=== PATIENT | male | born 1965 | race Caucasian/White ===

== ENCOUNTER 2017-03-26 06:16 | Emergency (ER) | payer OTHER, SELFPAY ==
[2017-03-26] MEDS ORDERED: Nitroglycerin 0.4 MG TAB (25 Tab Bottle) ONE (06:41)
[2017-03-26 06:44] LABS: #Basophils 0.2 thou/uL (0.0-0.2); #Eosinphils 1.4 thou/uL (0.0-0.7); #Lymphocytes 2.4 thou/uL (1.20-3.40); #Monocytes 1.2 thou/uL (0.11-0.59); #Neutrophils 5.5 thou/uL (1.40-6.50); %Basophils 1.8 % (0.0-1.0); %Eosinophils 12.8 % (0.0-10.0); %Lymphocytes 22.5 % (21.0-51.0); %Monocytes 11.5 % (0.0-10.0); %Neutrophils 51.4 % (42.0-75.0); Mean Corpuscular HGB CONC 33.3 g/dL (32.0-36.0); Mean Corpuscular Hemoglobin 29.3 pg (27.0-31.0); Mean Corpuscular Volume 88.2 fl (80.0-94.0); Mean Platelet Volume 7.7 fL (7.4-10.4); Platelet Count 243 thou/uL (130-400); RBC Distribution Width 12.2 % (11.5-14.5); Red Blood Cell (RBC) Count 5.12 mill/uL (4.70-6.10); White Blood Cell (WBC) Count 10.8 thou/uL (4.8-10.8)
[2017-03-26] MEDS ORDERED: Ondansetron HCl/PF 4 MG/2 ML Vial ONE (06:51)
[2017-03-26 06:53] LABS: PTT 30.5 SEC (22.9-36.1)
[2017-03-26 06:54] LABS: Prothrombin Time 13.1 SEC (12.0-14.7)
[2017-03-26 06:55] LABS: D-Dimer Test 0.37 *mcg/mL (0.27-0.43)
[2017-03-26 07:00] LABS: ALT (SGPT) 11 U/L (8-55); AST (SGOT) 12 U/L (5-34); Albumin 4.1 g/dL (3.5-5.0); Alkaline Phosphatase 41 U/L (40-150); Anion Gap 15 mmol/L (10-20); BUN (Urea Nitrogen) 12 mg/dL (8.9-20.6); Bilirubin, Total 0.5 mg/dL (0.2-1.2); CK (CPK) 111 U/L (30-200); CKMB 1.6 ng/mL (0-6.6); Calc. Creatinine Clearance 0 mL/min (70-130); Calcium 9.1 mg/dL (7.8-10.44); Carbon Dioxide 22 mmol/L (22-29); Chloride 105 mmol/L (98-107); Estimated GFR-MDRD 67; Glucose 117 mg/dL (70-105); Lipase 24 U/L (8-78); Protein, Total 8.1 g/dL (6.0-8.3); Sodium 138 mmol/L (136-145); Troponin I Less than 0.010 ng/mL (< 0.028)
--- NOTE | 2017-03-26 08:26 | CT ---
CHEST CT ANGIOGRAM INCLUDING 3D RENDERING ABDOMEN CT ANGIOGRAM INCLUDING 3D RENDERING: HISTORY: A 52-year-old male with chest pain. COMPARISON: 04/25/16. Again noted is a large stable aortic dissection extending from the aortic isthmus down the entire th oracic and abdominal aorta into the left iliac artery. There appears to be at least 1 large gallsto ne within the gallbladder. No evidence for pulmonary emboli. Minimal increased linear and intersti tial markings in the lung bases, probably chronic change versus some dependent positioning. Mild di latation of the aortic root up to 4.3 cm, stable. IMPRESSION: Large stable aortic dissection extending from the aortic isthmus down to the left iliac vein unchang ed from prior study 04/25/16. Evidence for at least 1 large gallstone. Increased interstitial jesse ngs in the posterior lung base are probably positional or chronic change. POS: [facility]
[2017-03-26] MEDS ORDERED: Iopamidol 370 76% 100 ML VIAL ONE (09:00)
== END 2017-03-26 09:50 | disposition short-term general hospital (02) ==
LOC: NAV ERS 06:16
DX: I71.9 Aortic aneurysm of unspecified site, without rupture (principal); I10 Essential (primary) hypertension; Z79.899 Other long term (current) drug therapy; Z87.891 Personal history of nicotine dependence
CPT/HCPCS: 36415; 71275; 80053; 82553; 83690; 83880; 84484; 85025; 85379; 85610; 85730; 93005; 96374; 96375; J2270; J2405

== ENCOUNTER 2017-08-14 11:32 | Outpatient (CLI) | payer OTHER ==
--- NOTE | 2017-08-14 13:06 | RAD ---
2 VIEWS CHEST: Date: 08/14/17 PROVIDED CLINICAL HISTORY: Disability evaluation. FINDINGS: Comparison made with the study dated 07/19/13. The cardiac silhouette is upper limits of normal in size. The lungs appear clear. There is no pleura l fluid or pneumothorax apparent. IMPRESSION: No evidence for an acute cardiopulmonary process. POS: [facility]
== END 2017-08-14 11:33 | disposition home or self-care (01) ==
LOC: NAV RAD 11:32
PROVIDERS: ATTEND Family Medicine
DX: I71.9 Aortic aneurysm of unspecified site, without rupture (principal)
CPT/HCPCS: 71020

== ENCOUNTER 2018-04-30 08:22 | Emergency (ER) | payer OTHER ==
[2018-04-30] MEDS ORDERED: Ondansetron HCl/PF 4 MG/2 ML Vial ONE (08:58)
[2018-04-30] MEDS ORDERED: Iopamidol 370 76% 100 ML VIAL ONE (09:00)
[2018-04-30 09:07] LABS: #Basophils 0.1 thou/uL (0.0-0.2); #Eosinphils 0.3 thou/uL (0.0-0.7); #Lymphocytes 1.9 thou/uL (1.20-3.40); #Neutrophils 8.3 thou/uL (1.40-6.50); %Eosinophils 2.6 % (0.0-10.0); %Lymphocytes 16.6 % (21.0-51.0); %Monocytes 8.2 % (0.0-10.0); %Neutrophils 71.6 % (42.0-75.0); Hemoglobin 15.4 g/dL (14.0-18.0); Mean Corpuscular HGB CONC 32.6 g/dL (32.0-36.0); Mean Corpuscular Hemoglobin 27.9 pg (27.0-31.0); Mean Corpuscular Volume 85.6 fL (78.0-98.0); Mean Platelet Volume 7.5 fL (7.4-10.4); Platelet Count 278 thou/uL (130-400); RBC Distribution Width 11.6 % (11.5-14.5); Red Blood Cell (RBC) Count 5.53 mill/uL (4.70-6.10); White Blood Cell (WBC) Count 11.6 thou/uL (4.8-10.8)
[2018-04-30 09:13] LABS: PTT 29.8 SEC (22.9-36.1); Prothrombin Time 13.5 SEC (12.0-14.7)
[2018-04-30 09:21] LABS: CK (CPK) 131 U/L (30-200); Lipase 13 U/L (8-78)
[2018-04-30 09:23] LABS: CKMB 1.8 ng/mL (0-6.6); Troponin I Less than 0.010 ng/mL (< 0.028)
[2018-04-30 10:12] LABS: ALT (SGPT) 15 U/L (8-55); AST (SGOT) 16 U/L (5-34); Albumin 4.1 g/dL (3.5-5.0); Alkaline Phosphatase 43 U/L (40-150); Anion Gap 13 mmol/L (10-20); BUN (Urea Nitrogen) 9 mg/dL (8.4-25.7); Bilirubin, Total 0.6 mg/dL (0.2-1.2); Calc. Creatinine Clearance 0 mL/min (70-130); Calcium 9.8 mg/dL (7.8-10.44); Carbon Dioxide 24 mmol/L (22-29); Chloride 103 mmol/L (98-107); Estimated GFR-MDRD 76; Glucose 129 mg/dL (70-105); Potassium 3.8 mmol/L (3.5-5.1); Protein, Total 8.1 g/dL (6.0-8.3); Sodium 136 mmol/L (136-145)
--- NOTE | 2018-04-30 11:40 | RAD ---
TWO VIEWS ABDOMEN UPRIGHT CHEST: Comparison: None. History: Midsternal chest pain extending into the abdomen with vomiting. FINDINGS: Supine and upright views of the abdomen and upright view of the chest shows nonspecific, nonobstructe d bowel gas pattern. No free air or air fluid levels are seen on the upright examination. Cardiomediastinal silhouette is normal in size. There is no evidence of consolidation, mass, or pleur al effusion. IMPRESSION: No evidence of obstruction. POS: [facility]
--- NOTE | 2018-04-30 12:28 | CT ---
CTA CHEST WITH 3D VOLUME RENDERING: CTA ABDOMEN AND PELVIS WITH 3D VOLUME RENDERING: CLINICAL HISTORY: Pain. History of dissection. COMPARISON: Reference made to CTA exam from 03/26/2017. FINDINGS: Redemonstration of aortic dissection, which spans the level of the aortic arch through the entirety o f the abdominal aorta and extending into the left iliac arterial system. There is no new periaortic hemorrhage. No new aneurysm. Incidental note of a prominent sized gallstone. Scattered patchy ground glass, as well as interstiti al opacities in the lungs, is seen bilaterally, which may be on the basis of dependent atelectasis. There is acute pathology of the solid abdominal viscera. No free air or ascites. IMPRESSION: 1. Redemonstration of diffuse aortic dissection, without new periaortic hemorrhage or interval devel opment of discrete aortic aneurysm. 2. Redemonstration of large gallstone. POS: [facility]
== END 2018-04-30 12:21 | disposition home or self-care (01) ==
LOC: NAV ERS 08:22
DX: R10.10 Upper abdominal pain, unspecified (principal); I10 Essential (primary) hypertension; F17.220 Nicotine dependence, chewing tobacco, uncomplicated; I71.2 Thoracic aortic aneurysm, without rupture; F32.9 Major depressive disorder, single episode, unspecified
CPT/HCPCS: 71260; 74022; 74177; 80053; 82550; 82553; 83690; 83880; 84484; 85025; 85610; 85730; 93005; 96374; 96375; J2270; J2405